=== PATIENT | female | born 1990 | race Caucasian/White ===

== ENCOUNTER 2017-04-26 11:17 | Emergency (ER) | payer OTHER ==
[~2017-04-26] VITALS: Ht 157.5 cm; Wt 52.6 kg
[~2017-04-26 11:17] MED LIST: CLON0.5T3 PO; LISD30CA PO; MONT1TAB3 PO; TRAZ50TA35 PO
[2017-04-26 11:30] VITALS: TEMP 37.1; Ht 157.5 cm; Wt 52.6 kg
[2017-04-26] MEDS ORDERED: METHYLPREDNISOLONE 125 MG VIAL IV STA (11:45)
[2017-04-26] MEDS ORDERED: FAMOTIDINE 20MG/5ML IV PUSH IV STA (11:45)
--- NOTE | 2017-04-26 11:51 | EMERGENCY ROOM VISIT NOTE ---
History First contact with patient: 11:29 Chief Complaint: ALLERGIC REACTION Stated Complaint: ALLERGIC REACTION Nursing Triage Summary: Pt arrived via ambulance ALS. Pt received an allergy injections at [facility] for enviromental allergies around 929. Pt has been receiving these injections for over a year but states that it has been a month since her last injection. She usually receives them weekly. Pt states that she waited the 30 minutes till after the injection to leave. Pt walked 15 min. She states that she became very thirsty. When the pt arrived at her office she stated that it was difficult for her to breath. Her throat felt tight and her tongue felt enlarged. Pt went directly back to [facility]. She was given 50mg Benadryl, 2 EPI injections and a duoneb treatment. When EMS arrived the pts pulse ox was 99% on room are. Pts HR 110 The pt states that she feels jumpy but is having no airway problems at this time. Pts lungs clear bilat Pulse ox 100% RA History of Present Illness The patient is a 27 year old female who presents to the Emergency Room via ALS due to an allergic reaction. The patient reports that she was at [facility] receiving immunotherapy injections due to allergies of dust and grasses. She was monitored there for 30 minutes following her injections. She states that she was walking to her office about 15 minutes away when she began to feel like her throat was tight and chest was tight. She returned to [facility] and stated treated her for an allergic reaction with 50 mg Benadryl IM, 2 doses of epinephrine and a DuoNeb treatment. She reports she feels much better at this time, however she feels very jittery and dizzy. She has been receiving the allergy injections for over one year. She does state that she has not received them in over 1 month due to being ill last month. She has never had this type of reaction in the past. She denies any skin rashes. She denies any difficulty breathing or swallowing at this time. She denies any nausea/vomiting. Review of Systems A complete 10 point review of systems was reviewed with the patient with pertinent positives and negatives as per history of present illness. All else were negative. Past Medical/Surgical History Surgical Problems: (1) Hx of appendectomy Family History No pertinent family history Social History Smoking Status: Never Smoker Alcohol Use: occasionally Marital Status: single Housing Status: lives with roommate Occupation Status: [employer] student Current/Historical Medications Scheduled Cetirizine (Zyrtec), 10 MG PO QPM Epinephrine (Epipen), 0.3 MG IM UD Lisdexamfetamine Dimesylate (Vyvanse), 30 MG PO DAILY Montelukast Sodium (Singulair), 10 MG PO QPM Prednisone (Prednisone Tab), 2 TAB PO DAILY Scheduled PRN Clonazepam (Klonopin), 0.5 MG PO BID PRN for Anxiety Trazodone Hcl (Trazodone), 50 MG PO HS PRN for Sleep Miscellaneous Medications Rizatriptan Benzoate (Maxalt), Unknown Dose PO Physical Exam Vital Signs Date Time Temp Pulse Resp B/P (MAP) Pulse Ox O2 Delivery O2 Flow Rate FiO2 04/26/17 13:36 114 18 99/62 99 Room Air 04/26/17 12:09 93 04/26/17 11:30 37.1 107 20 107/61 100 Room Air 04/26/17 11:30 100 Room Air Physical Exam VITALS: Vitals are noted on the nurse's note and reviewed by myself. Vital signs stable. GENERAL: This is a 27-year-old female, anxious appearing, well-developed well- nourished. SKIN: The skin was without rashes. EARS: External auditory canals clear, tympanic membranes pearly mccurdy without erythema or effusion bilaterally. EYES: Pupils equal round and reactive to light and accommodation. NOSE: Patent, turbinates without inflammation or discharge. MOUTH: Mucous membranes moist. Airway patent. NECK: Supple without nuchal rigidity. No lymphadenopathy. HEART: Regular rate and rhythm without murmurs gallops or rubs. LUNGS: Clear to auscultation bilaterally without wheezes, rales or rhonchi. No retractions or accessory muscle use. NEURO: Patient was alert and oriented to person place and time. Medical Decision & Procedures Medications Administered Medications (Trade) Dose Ordered Sig/Gifty Route Start Time Stop Time Status Last Admin Dose Admin Methylprednisolone Sodium Succinate (Solu-Medrol IV) 125 mg NOW STAT IV 04/26/17 11:45 04/26/17 11:50 DC 04/26/17 12:02 125 MG Famotidine (Pepcid 20mg Iv Push) 20 mg ONE STAT IV 04/26/17 11:45 04/26/17 11:50 DC 04/26/17 12:03 20 MG Ibuprofen (Motrin Tab) 600 mg STK-MED ONCE .ROUTE 04/26/17 12:38 04/26/17 12:39 DC 04/26/17 12:38 600 MG Lorazepam (Ativan Tab) 0.5 mg NOW STAT SL 04/26/17 12:40 04/26/17 12:41 DC 04/26/17 12:46 0.5 MG ED Course The patient was evaluated as above. Labs were drawn and IV access was obtained. Patient was medicated with 125 mg Solu-Medrol and 20 mg Pepcid IV. Patient was reevaluated and requested something for her chronic back pain. She was given ibuprofen. Patient was reevaluated and remains very anxious and jittery. A dose of Ativan was ordered. The patient. Patient was reevaluated and feels much better. She is anxious to leave. Discharge instructions were reviewed with the patient. The patient verbalized understanding of my assessment and treatment plan and was discharged home in good condition. Medical Decision Differential diagnosis includes allergic reaction, anaphylaxis, among others. The patient is a 27-year-old female who presents today for evaluation of an allergic reaction. The patient had a reaction to her allergy injections and was seen at [facility]. She received epinephrine as well as Benadryl there. Her symptoms had resolved on arrival to the ED. She was given Solu-Medrol and Pepcid. She was monitored for approximately 3 hours and had no new symptoms. Blood pressure was slightly low, however on review of previous records this appears to be the patient's pain went blood pressure. She was given a prescription for prednisone and EpiPen. She was instructed to return with any symptoms of a rebound allergic reaction. Based on the patient's presentation and work up, I feel the patient is stable for outpatient treatment. The patient was educated to return to the emergency department for any worsening of their current condition or new/concerning symptoms. She will follow up with [facility]. Impression Primary Impression: Allergic reaction Departure Information Dispostion Home / Self-Care Condition GOOD Prescriptions Epinephrine (EPIPEN) 0.3 Mg/0.3 Ml Inj 0.3 MG IM UD, #1 BOX Prov: Lesly Collier ., JUDD 04/26/17 Prednisone (Prednisone Tab) 20 Mg Tab 2 TAB PO DAILY for 4 Days, #8 TAB Prov: Lesly Collier, JUDD 04/26/17 Referrals No Doctor, Assigned (PCP) Patient Instructions My [facility] Additional Instructions You have been treated in the Emergency Department for an Allergic Reaction. You have been treated and monitored in the Emergency Department appropriately. You should take Benadryl (diphenhydramine) 25-50 mg orally every 4-6 hours for the next 5-7 days. This medication is [id number] and you will NOT need a prescription to purchase this at your local pharmacy. You should continue taking the Benadryl for the COMPLETION of the 5-7 days. This is to prevent a rebound allergic reaction in the event that allergens are still present in your system. You have been prescribed Prednisone 40 mg to be taken orally once a day for the next 4days. This is an anti-inflammatory medicine to be used to help minimize your symptoms. You should take the COMPLETE course of the medication. You have been prescribed an EpiPen to be used in the case of an Emergency. Please read the packet you have been given and ask your pharmacist for instructions on proper administration. If you begin to experience the symptoms that brought you to the Emergency Department today, you should give yourself the injection and then report IMMEDIATELY to the Emergency Department for further evaluation and treatment. As with every Emergency Department visit, you should follow-up with your primary care provider in 2-3 days for reevaluation. Return to the Emergency Department if your current symptoms worsen despite treatment course outlined above, or if you develop any of the following symptoms : wheezing, tongue or face swelling, tightness in your throat, shortness of breath, or fainting.
[2017-04-26] MEDS ORDERED: CETI10TA84 PO (12:25)
[2017-04-26] MEDS ORDERED: RIZA10TA18 PO (12:25)
[2017-04-26] MEDS ORDERED: LISD30CA4 PO (12:25)
[2017-04-26] MEDS ORDERED: IBUPROFEN 600 MG TAB ONE (12:38)
[2017-04-26] MEDS ORDERED: LORAZEPAM 0.5 MG TAB SL STA (12:40)
[2017-04-26 13:36] VITALS: BP 99/62; PULSE 114; O2SAT 99
[2017-04-26] MEDS ORDERED: PRED20TA2 PO (14:05)
[2017-04-26] MEDS ORDERED: EPP3/2 IM (14:05)
== END 2017-04-26 14:18 | disposition home or self-care (01) ==
LOC: EDBD 11:17 → C.EDB 11:18
DX: T78.40XA Allergy, unspecified, initial encounter (principal); X58.XXXA Exposure to other specified factors, initial encounter